=== PATIENT | female | born 1980 | race Two or more races ===

== ENCOUNTER 2016-07-29 02:44 | Inpatient (IN) | payer OTHER ==
[2016-07-29] VITALS (7 sets, daily range): BP systolic 102–118; BP diastolic 53–71; PULSE 62–86; RESP 17–20
[~2016-07-29] VITALS: Ht 162.6 cm; Wt 92.2 kg
[2016-07-29] MEDS ORDERED: LACTATED RINGER'S 1,000 ML IV SCH (03:42)
--- NOTE | 2016-07-29 03:46 | TRIAGE ---
OB Triage Datetime Report Generated by CPN: 07/29/2016 03:46 Datetime: 07/29/2016 03:30 Monitor Mode: External Quality: Mild Pattern: Normal: <= 5 Contractions in 10 Minutes Resting Tone Coolin: Relaxed Heart Rate FHR Baseline Rate: 140 Monitor Mode: External US FHR Baseline Changes: No Baseline Change Variability: Moderate 6-25 bpm Accelerations: 15X15 Decelerations: None Category: Category I Vaginal Exam Dilatation (cms): 3.5 Effacement (%): 70 Station: -1 Exam By: Osiel Coronel Amniotic Fluid Amount: None Amniotic Fluid Odor: None Vaginal Bleeding: None Cervix, Consistency: Soft Cervix, Position: Posterior Presentation 'A': Cephalic Datetime: 07/29/2016 03:21 Time of Arrival: 07/29/2016 02:40 EGA: 39.0 Arrived By: Wheelchair Arrived From: Home Chief Complaint: w/ hx c/s x1 c/o ucs ans ?leaking small amt fluid Movement: Present Contractions: Irregular Contractions: q30 Rupture of Membranes: Unsure Vaginal Bleeding: None Vaginal Discharge: Present Recent Sexual Intercouse: Denies Patient Complaints: Contractions Initial Plan: EFM, SVE Datetime: 07/29/2016 03:15 Quality: Mild Pattern: Normal: <= 5 Contractions in 10 Minutes Resting Tone Coolin: Relaxed Heart Rate FHR Baseline Rate: 135 Monitor Mode: External US Variability: Moderate 6-25 bpm Accelerations: 15X15 Datetime: 07/29/2016 03:03 Comments: 115 Datetime: 07/29/2016 03:01 Maternal Assessment Level of Consciousness: Fully Conscious Headache: Denies Blurred Vision: No Nausea/Vomiting: Denies RUQ Epigastric Pain: Denies Facial Edema: None Labor Evaluation Frequency: placed Monitor Mode: External Resting Tone Coolin: Relaxed Monitor Mode: External US Comments: FHR 90 Pain Assessment Pain Scale: 5 Pain Presence: Intermittent Pain Type: Contraction Pain Location: Abdomen
[2016-07-29] MEDS ORDERED: LEVO100T87 PO (03:48)
[2016-07-29] MEDS ORDERED: PRENAT PO (03:48)
[2016-07-29] MEDS ORDERED: CHOL100062 PO (03:48)
[2016-07-29 03:50] LABS: ADD SCAN DIFF NO
[2016-07-29] MEDS ORDERED: OXYTOCIN 30 UNITS/LR 500 ML IV PRN ×3 (04:00→12:30)
[2016-07-29] MEDS ORDERED: CARBOPROST 250 MCG INJ IM PRN ×3 (04:00→12:30)
[2016-07-29] MEDS ORDERED: CEFAZOLIN 2 GM/50 ML (PMX) 50 ML IV SCH (04:00)
[2016-07-29] MEDS ORDERED: METHYLERGONOVINE 0.2 MG INJ IM PRN ×3 (04:00→12:30)
[2016-07-29] MEDS ORDERED: MISOPROSTOL 200 MCG TAB PR PRN ×3 (04:00→12:30)
[2016-07-29] MEDS ORDERED: OXYTOCIN 30 UNITS/LR 500 ML IV SCH ×2 (04:00→07:30)
[2016-07-29 04:01] LABS: BASOPHILS % 0.3 % (0.0-2.0); EOSINOPHILS # 0.1 10^3/ul (0.0-0.5); EOSINOPHILS % 0.8 % (0.0-7.0); HEMATOCRIT 34.9 % (37.0-47.0); LYMPHOCYTES # 2.4 10^3/ul (0.8-2.9); LYMPHOCYTES % 20.7 % (15.0-51.0); MEAN CORPUSCULAR HEMOGLOBIN 30.8 pg (29.0-33.0); MEAN CORPUSCULAR HGB CONC 34.4 g/dl (32.0-37.0); MEAN CORPUSCULAR VOLUME 89.7 fl (82.0-101.0); MEAN PLATELET VOLUME 11.7 fl (7.4-10.4); MONOCYTE # 0.8 10^3/ul (0.3-0.9); MONOCYTES % 7.3 % (0.0-11.0); NEUTROPHIL # 7.9 10^3/ul (1.6-7.5); NEUTROPHILS % 69.5 % (39.0-77.0); PLATELET COUNT 265 10^3/UL (140-415); RED BLOOD COUNT 3.89 10^6/ul (4.20-5.40); RED CELL DISTRIBUTION WIDTH 14.6 % (11.5-14.5); WHITE BLOOD COUNT 11.4 10^3/ul (4.8-10.8)
[2016-07-29 04:19] LABS: INR 1.16; PARTIAL THROMBOPLASTIN TIME 29.4 Sec (25.0-35.0); PROTIME 14.9 Sec (12.2-14.2); PT RATIO 1.2
[2016-07-29] MEDS ORDERED: CLINDAMYCIN 900 MG/D5W (PMX) 50 ML IV SCH (04:30)
[2016-07-29] MEDS ORDERED: TERBUTALINE 1 ML ONE (05:14)
[2016-07-29] MEDS ORDERED: TERBUTALINE 1 MG/ML INJ SC ONE (06:00)
[2016-07-29] MEDS ORDERED: EPHEDrine SULFATE 50 MG/5 ML SYG ONE (07:00)
[2016-07-29] MEDS ORDERED: OXYTOCIN 30 UNITS/LR 500 ML BAG IV ONE (07:00)
[2016-07-29] MEDS ORDERED: CLINDAMYCIN 900 MG/D5W (PMX) 50 ML IVPB SCH (07:30)
[2016-07-29] MEDS: LACTATED RINGER'S 1,000 ML IV SCH ×2 (07:39→08:17)
[2016-07-29] MEDS ORDERED: NALOXONE (0.4 MG/ML) INJ IV PRN (08:00)
[2016-07-29] MEDS ORDERED: CITRIC ACID/NA CITRATE 30 ML CUP PO ONE (08:00)
[2016-07-29] MEDS ORDERED: METOCLOPRAMIDE 10 MG INJ IV PRN (08:00)
[2016-07-29] MEDS ORDERED: HYDROmorphONE 1 MG/ML SYG IV PRN ×2 (08:00)
[2016-07-29] MEDS ORDERED: HYDROmorphONE (0.2 MG/ML) 10ML SYG IV PRN ×3 (08:00)
[2016-07-29] MEDS ORDERED: PROCHLORPERAZINE 10 MG INJ IV PRN (08:00)
[2016-07-29] MEDS ORDERED: DIPHENHYDRAMINE 50 MG INJ IV PRN ×3 (08:00→12:30)
[2016-07-29] MEDS ORDERED: MEPERIDINE 25 MG INJ IV PRN (08:00)
[2016-07-29] MEDS ORDERED: ONDANSETRON 4 MG INJ IV PRN ×3 (08:00→12:30)
[2016-07-29] MEDS ORDERED: FENTAnyl 50 MCG/ML VIAL IV PRN (08:00)
[2016-07-29] MEDS ORDERED: PHENYLephrine (100 MCG/ML) 5ML SYG ONE ×4 (08:30→09:19)
[2016-07-29] MEDS ORDERED: morphine SULFATE/PF (10 MG/10 ML) INJ ONE (08:30)
--- NOTE | 2016-07-29 08:34 | HP ---
Date/Time of Note Date/Time of Note DATE: 07/29/16 TIME: 08:24 OB - History Hx of Present Free Text/Dictation 36y.o [id number] 39weeks with c/o uterine [id number] with previous section VE 3-4cm 70% -1 poss rom [id number] have been on levothyroxine 100mcg prepare for repeat section Estimated Due Date: Aug 05, 2016 : 3 Para: 1 Spontaneous : 0 Therapeutic : 1 Care: Good Care Ultrasounds: Normal mid trimester US Obstetrical Complications: None Medical Complications: Other (hypotyroidism) Past Family/Social History * Past Medical, Surgical, Family and Obstetric Histories reviewed from chart. Blood Type: Unknown Rubella: unknown RPR/VDRL: Unknown GBS Status: Unknown HBsAG: Unknown OB Admission Exam Vital Signs Vital Signs Vital Signs Date Time Temp Pulse Resp B/P Pulse Ox O2 Delivery O2 Flow Rate FiO2 07/29/16 03:40 98.3 72 18 113/71 Room Air Physical Exam HEENT: WNL Heart: Rhythm Normal Lungs: Clear, Equal Abdomen: WNL Extremities: Normal Reflexes: Normal Cervical Dilatation: 3cm Effacement: 75% Station: -1 Membranes: Intact Amniotic Fluid: Other Heart Rate: 130's Accelerations: Accelerations Present Decelerations: No Decelerations Varibility: Moderate Contractions on Admission: >10 Minutes Apart Intensity: Mild Last 72 hours Lab Results CBC & BMP 07/29/16 03:15 OB Assessment/Plan Reason for admission: active labor Plan: Section DAVID FINK MD Jul 29, 2016 08:34
[2016-07-29] MEDS ORDERED: LIDOCAINE 2% (SDV) 5 ML INJ ONE (08:48)
[2016-07-29] MEDS: KETOROLAC 30 MG INJ IV PRN (11:52)
[2016-07-29] MEDS ORDERED: ZOLPIDEM 5 MG TAB PO PRN (12:30)
[2016-07-29] MEDS ORDERED: OXYCODONE/ACETAMINOPHEN (5/325) TAB PO PRN (12:30)
[2016-07-29] MEDS ORDERED: LANOLIN 7 GM TUBE TOP PRN (12:30)
--- NOTE | 2016-07-29 13:31 | OPR ---
DATE OF OPERATION: 07/29/2016 PREOPERATIVE DIAGNOSIS: 39 weeks with a previous section, in labor. POSTOPERATIVE DIAGNOSIS: 39 weeks with a previous section, in labor. Delivered normal . OPERATION PERFORMED: Repeat low transverse section. SURGEON: Phoebe Reno MD FURNACE RELINER: ANESTHESIA: Spinal. ANESTHESIOLOGIST: Charly Conklin MD ESTIMATED BLOOD LOSS: Approximately 500 mL. PROCEDURE: Under appropriate induction of spinal anesthesia, the patient was placed in the frog pos ition. Bermudez catheter was introduced into the bladder under sterile condition, repositioned to supi ne. Abdominal wall was prepped and draped in usual aseptic manner. A transverse incision was made on the previous incisional scar. Incision was carried down through the subcutaneous tissue to the a nterior rectus fascia which was incised transversely length of the incision. Fascial flap was creat ed by blunt and sharp dissection of tendinous attachment, rectus muscles split and peritoneal cavity was entered. There were filmy adhesions all over the uterine serosa, but there is no significant a dhesion noted. A transverse incision was made above the uterovesical reflection. Incision carried down to the amniotic membrane, ruptured, revealed clear amniotic fluid. Normal female was debra rn, 7 pounds 7 ounces, with 8 and 9, and 3 times loose nuchal cord noted which was released an d the mouth and nose were cleaned, cord was clamped and cut, and handed to the respiratory care pers oncounts include [facility] beds at the [facility] for further care. Cord was extremely long. Cord blood was obtained. Placenta was removed ma nually. Cavity was explored with a dry lap and the uterus was exteriorized. Incision was closed us ing #1 chromic catgut in continuous manner and second layer using 0 chromic catgut in continuous man ner, thus imbricating the first layer of the closure. No bleeder was noted. The uterus was relocated in abdominal cavity and after all the sponges were removed and irrigation w as done. The uterine incisional site was rechecked for the bleeder and sponge count correct. Parie rashid peritoneum was closed using 0 chromic catgut in continuous manner, muscle closed with 0 chromic catgut in continuous manner. Fascia closed with #1 Vicryl in continuous manner in 2 segments after a piece of Surgicel was laid on it. Subcutaneous tissues were irrigated. This layer was approximat ed with 2-0 plain in continuous manner. Skin was closed with 3-0 Monocryl in a subcuticular manner. Estimated blood loss approximately 550 mL. Final sponge count correct. The patient withstood the procedure well and was sent to recovery room in stable condition. Dictated By: PHOEBE THOMPSON/OBED Conf#: [id number] DID#: [id number]
[2016-07-29] MEDS: OXYTOCIN 30 UNITS/LR 500 ML IV SCH ×3 (14:14→20:18)
[2016-07-29] MEDS: SENNA/DOCUSATE NA (8.6MG/50MG) TAB PO SCH (21:00)
[2016-07-30 00:11] VITALS: BP 97/57; PULSE 75; RESP 18
[2016-07-30] MEDS: LACTATED RINGER'S 1,000 ML IV SCH ×2 (00:26→08:30)
[2016-07-30] MEDS: KETOROLAC 30 MG INJ IV PRN (04:11)
[2016-07-30 04:13] VITALS: BP 95/55; PULSE 87; RESP 18
[2016-07-30] MEDS: LEVOTHYROXINE 100 MCG TAB PO SCH (05:54)
--- NOTE | 2016-07-30 07:16 | CONS ---
Date/Time of Note Date/Time of Note DATE: 07/30/16 TIME: 07:16 Consultation Date/Type/Reason Admit Date/Time Jul 29, 2016 at 03:43 Initial Consult Date 07/30/16 Type of Consultation: Anesthesiology Reason for Consultation Follow up 24 HR Interval Summary Free Text/Dictation Pt seen and examined at bedside is POD #1 for C/S. Pt had Duramorph neuraxial injection for post op pain management. She states she is currently doing well with no pain/N/V/D/CHRISTIAN/Numbness. Will continue to follow up PRN. Thank you. Constitutional: improved, no complaints Exam/Review of Systems Vital Signs Vitals Vital Signs Date Time Temp Pulse Resp B/P Pulse Ox O2 Delivery O2 Flow Rate FiO2 07/30/16 04:13 98.3 87 18 95/55 Room Air 07/29/16 12:30 94 Intake and Output 07/29/16 07/29/16 07/30/16 15:00 23:00 07:00 Intake Total 2425 ml 500 ml 1250 ml Output Total 1200 ml 500 ml 2800 ml Balance 1225 ml 0 ml -1550 ml Results Result Diagram: 07/29/16 0315 Medications Medications Current Medications Ketorolac Tromethamine (Toradol) 30 mg Q6H PRN IV PAIN Last administered on 07/30t 04:11; Admin Dose 30 MG; Start 07/29/16 at 08:00; Stop 07/30/16 at 07:59 Hydromorphone HCl (Dilaudid) 0.2 mg Q3H PRN IV PAIN LEVEL 1-5; Start 07/29/16 at 08:00; Stop 07/30/16 at 07:59 Hydromorphone HCl (Dilaudid) 0.4 mg Q3H PRN IV PAIN LEVEL 6-10; Start 07/29/16 at 08:00; Stop 07/30/16 at 07:59 Diphenhydramine HCl (Benadryl) 25 mg Q6H PRN IV ITCHING; Start 07/29/16 at 08:00 ; Stop 07/30/16 at 07:59 Ondansetron HCl (Zofran Inj) 4 mg Q6H PRN IV NAUSEA AND/OR VOMITING; Start 07/29 at 08:00; Stop 07/30/16 at 07:59 Prochlorperazine (Compazine Inj) 10 mg ONCE PRN IV NAUSEA AND/OR VOMITING; Start 07/29/16 at 08:00; Stop 07/30/16 at 07:59 Levothyroxine Sodium (Synthroid) 100 mcg DAILY@06 PO Last administered on t 05:54; Admin Dose 100 MCG; Start 07/30/16 at 06:00 Oxycodone/ Acetaminophen (Percocet (5/ 325)) 1 tab Q4H PRN PO PAIN LEVEL 4-6; Start 07/29/16 at 12:30 Oxycodone/ Acetaminophen (Percocet (5/ 325)) 2 tab Q4H PRN PO PAIN LEVEL 7-10; Start 07/29/16 at 12:30 Ibuprofen (Motrin) 600 mg Q6 PO ; Start 07/30/16 at 12:00 Simethicone (Mylicon) 160 mg Q8H PRN PO DISTENSION/GAS/BLOATING; Start 07/29/16 at 12:30 Senna/Docusate Sodium (Senokot-S) 1 tab BID PO ; Start 07/29/16 at 21:00 Diphtheria/ Tetanus/Acell Pertussis 0.5 ml 0.5 ml ONCE ONCE IM* ; Start 08/01/16 at 09:00; Stop 08/01/16 at 09:01 Oxytocin/Lactated Ringer's 500 ml @ 0 mls/hr ONCE PRN IV For Hemorrhage Management; Start 07/29/16 at 12:30 Methylergonovine Maleate (Methergine) 0.2 mg ONCE PRN IM VAGINAL BLEEDING; Start 07/29/16 at 12:30 Carboprost Tromethamine (Hemabate) 250 mcg ONCE PRN IM VAGINAL BLEEDING; Start 07/29/16 at 12:30 Misoprostol (Cytotec) 1,000 mcg ONCE PRN ID VAGINAL BLEEDING; Start 07/29/16 at 12:30 Diphenhydramine HCl (Benadryl) 25 mg Q6H PRN IV PRURITUS; Start 07/29/16 at 12: 30 Ondansetron HCl (Zofran Inj) 4 mg Q6H PRN IV NAUSEA AND/OR VOMITING; Start 07/29 at 12:30 Zolpidem Tartrate 10 mg 10 mg QHS PRN PO INSOMNIA; Start 07/29/16 at 12:30 Lactated Ringer's (Lr) 1,000 ml @ 125 mls/hr Q8H IV Last administered on t 00:26; Admin Dose 125 MLS/HR; Start 07/30/16 at 00:30; Stop 08/03/16 at 09: 00 KUNAL VALDEZ Jul 30, 2016 07:16
[2016-07-30 08:20] VITALS: BP 125/67; PULSE 78; RESP 19
[2016-07-30] MEDS: SENNA/DOCUSATE NA (8.6MG/50MG) TAB PO SCH ×2 (09:16→20:38)
[2016-07-30] MEDS: OXYCODONE/ACETAMINOPHEN (5/325) TAB PO PRN ×2 (09:17→15:45)
[2016-07-30 10:12] LABS: ADD SCAN DIFF NO
[2016-07-30 10:14] LABS: BASOPHILS % 0.3 % (0.0-2.0); EOSINOPHILS # 0.1 10^3/ul (0.0-0.5); EOSINOPHILS % 0.4 % (0.0-7.0); HEMATOCRIT 32.2 % (37.0-47.0); HEMOGLOBIN 10.6 g/dl (12.0-16.0); LYMPHOCYTES # 1.6 10^3/ul (0.8-2.9); LYMPHOCYTES % 13.4 % (15.0-51.0); MEAN CORPUSCULAR HEMOGLOBIN 30.5 pg (29.0-33.0); MEAN CORPUSCULAR HGB CONC 32.9 g/dl (32.0-37.0); MEAN CORPUSCULAR VOLUME 92.8 fl (82.0-101.0); MEAN PLATELET VOLUME 11.6 fl (7.4-10.4); MONOCYTE # 0.6 10^3/ul (0.3-0.9); MONOCYTES % 5.2 % (0.0-11.0); NEUTROPHIL # 9.3 10^3/ul (1.6-7.5); PLATELET COUNT 187 10^3/UL (140-415); RED BLOOD COUNT 3.47 10^6/ul (4.20-5.40); RED CELL DISTRIBUTION WIDTH 15.1 % (11.5-14.5); WHITE BLOOD COUNT 11.6 10^3/ul (4.8-10.8)
[2016-07-30] MEDS: IBUPROFEN 600 MG TAB PO SCH ×2 (11:32→17:32)
[2016-07-30 15:45] VITALS: BP 100/56; PULSE 79; RESP 18
[2016-07-30 19:30] VITALS: BP 100/58; PULSE 85; RESP 19
[2016-07-31] MEDS: IBUPROFEN 600 MG TAB PO SCH ×4 (00:24→17:37)
[2016-07-31 04:00] VITALS: BP 108/65; PULSE 80; RESP 20
[2016-07-31] MEDS: LEVOTHYROXINE 100 MCG TAB PO SCH (05:58)
[2016-07-31 07:30] VITALS: BP 99/51; PULSE 76; RESP 18
[2016-07-31] MEDS: SENNA/DOCUSATE NA (8.6MG/50MG) TAB PO SCH (10:03)
[2016-07-31] MEDS: OXYCODONE/ACETAMINOPHEN (5/325) TAB PO PRN (10:06)
[2016-07-31 16:11] VITALS: BP 100/69; PULSE 84; RESP 18
--- NOTE | 2016-07-31 19:15 | PD.PPDC ---
SPOUT WORKER Discharge Instruction Condition Patient Condition: Good Diet Diet: Resume Regular Diet Activity/Restrictions Activity: Normal Activity May Shower Wound/Drain Care Instructions Wound/Drain Care Instructions: Wash with soap and water Keep clean and dry Follow-up Follow-up with Physician: 2 Return to clinic for PERSONAL COUNSELOR Instructions: Fever greater than 101 Chills Worsening abdominal pain Excessive Vaginal Bleeding More than 2 pads per hour Unable to tolerate diet OB Instructions: Breast Tenderness Depression Blurried Vision Headache Surgical Instructions: Incisional Drainage Incisional Redness KYLEIGH HUNTER MD Jul 31, 2016 19:15
[2016-07-31] MEDS ORDERED: Oxycodone/Acetamin (5/325) PO ×2 (19:17→19:21)
[2016-07-31] MEDS ORDERED: IBUP-1542 PO (19:17)
[2016-07-31 21:07] VITALS: BP 104/58; PULSE 76; RESP 19
[2016-08-01] MEDS: SENNA/DOCUSATE NA (8.6MG/50MG) TAB PO SCH ×2 (00:14→09:31)
[2016-08-01] MEDS: IBUPROFEN 600 MG TAB PO SCH ×3 (00:14→11:57)
[2016-08-01] MEDS: OXYCODONE/ACETAMINOPHEN (5/325) TAB PO PRN (02:14)
[2016-08-01 04:45] VITALS: BP 103/63; PULSE 73; RESP 19
[2016-08-01] MEDS: LEVOTHYROXINE 100 MCG TAB PO SCH (05:49)
[2016-08-01 07:40] VITALS: BP 99/61; PULSE 75; RESP 18
[2016-08-01] MEDS ORDERED: DIPHTH/TET/ACEL PERTUSS (ADULT) 0.5 ML VIAL IM* ONE (09:00)
[2016-08-01] MEDS ORDERED: IBUP-1542 PO (10:22)
[2016-08-01] MEDS ORDERED: OXYC-279 PO (10:26)
== END 2016-08-01 16:36 | disposition home or self-care (01) | DRG 766 ==
LOC: OBT 02:44 → L-D 02:47 → OBT 03:42 → L-D 03:43 → PP1 12:28
PROC: 10D00Z1 Extraction of Products of Conception, Low, Open Approach (ICD-10-PCS; principal; 2016-07-29 09:00)
DX: O34.211 Maternal care for low transverse scar from previous cesarean delivery (principal); Z37.0 Single live birth; Z3A.39 39 weeks gestation of pregnancy
CPT/HCPCS: 84443; 85025; 85610; 85730; 86592; 86850; 86870; 86885; 86900; 86901; 87340; 90715; 94760; 99464; J1885; J2274; J2370; J2405; J2590; J2790; J3010; J3105; J7120

== ENCOUNTER 2016-09-01 16:49 | Emergency (ER) | payer OTHER ==
[~2016-09-01] VITALS: Wt 83.0 kg
[~2016-09-01 16:49] MED LIST: CHOL100062 PO; IBUP-1542 PO; LEVO100T87 PO; OXYC-279 PO; Oxycodone/Acetamin (5/325) PO; PRENAT PO
[2016-09-01] MEDS ORDERED: KETOROLAC 30 MG INJ IV STA (17:26)
[2016-09-01] MEDS ORDERED: SOD CHLORIDE 0.9% 1,000 ML IV STA (17:26)
[2016-09-01 18:02] LABS: ADD SCAN DIFF NO
[2016-09-01 18:06] LABS: BASOPHILS % 0.2 % (0.0-2.0); EOSINOPHILS # 0.2 10^3/ul (0.0-0.5); EOSINOPHILS % 1.9 % (0.0-7.0); HEMOGLOBIN 12.4 g/dl (12.0-16.0); LYMPHOCYTES # 2.8 10^3/ul (0.8-2.9); LYMPHOCYTES % 27.7 % (15.0-51.0); MEAN CORPUSCULAR HEMOGLOBIN 28.3 pg (29.0-33.0); MEAN CORPUSCULAR HGB CONC 31.8 g/dl (32.0-37.0); MEAN PLATELET VOLUME 11.2 fl (7.4-10.4); MONOCYTE # 0.8 10^3/ul (0.3-0.9); MONOCYTES % 7.8 % (0.0-11.0); NEUTROPHIL # 6.2 10^3/ul (1.6-7.5); PLATELET COUNT 294 10^3/UL (140-415); RED BLOOD COUNT 4.38 10^6/ul (4.20-5.40); RED CELL DISTRIBUTION WIDTH 13.5 % (11.5-14.5); WHITE BLOOD COUNT 10.1 10^3/ul (4.8-10.8)
[2016-09-01 18:15] LABS: ADD UMIC YES; URINE BILIRUBIN (Dip) NEGATIVE (NEGATIVE); URINE BLOOD (Dip) TRACE (NEGATIVE); URINE COLOR LT. YELLOW (YELLOW); URINE GLUCOSE (Dip) NEGATIVE (NEGATIVE); URINE KETONES (Dip) NEGATIVE (NEGATIVE); URINE LEUKOCYTE ESTERASE (Dip) 2+ (NEGATIVE); URINE NITRITE (Dip) NEGATIVE (NEGATIVE); URINE TOTAL PROTEIN (Dip) NEGATIVE (NEGATIVE); URINE UROBILINOGEN (Dip) 0.2 E.U./dL (0.1-1.0)
[2016-09-01 18:25] LABS: BACTERIA,URINE FEW; SQUAMOUS EPITHELIAL CELL,UR MODERATE; URINE RBCS 0-2 /HPF (0)
[2016-09-01 18:26] LABS: POTASSIUM 4.4 mmol/L (3.5-5.1)
[2016-09-01 18:28] LABS: CREATININE 0.64 mg/dl (0.44-1.00)
[2016-09-01 18:29] LABS: ALBUMIN/GLOBULIN RATIO 1.02; BILIRUBIN,INDIRECT 0.5 mg/dl (0-1.1); BILIRUBIN,TOTAL 0.5 mg/dl (0.2-1.3); CALCIUM 9.2 mg/dl (8.4-10.2); TOTAL PROTEIN 7.9 g/dl (6.1-8.1)
[2016-09-01] MEDS ORDERED: NITROFURANTOIN (SR) 100 MG CAP PO STA (18:47)
[2016-09-01] MEDS ORDERED: NITR-58 PO (19:13)
[2016-09-01] MEDS ORDERED: PHEN-537 PO (19:13)
--- NOTE | 2016-09-01 20:17 | ERD ---
ER Documentation Chief Complaint Date/Time DATE: 09/01/16 TIME: 20:12 Chief Complaint AP AND FEVER, S/P C SECTION MNTH AGO. NO NO VAG BLEED. HPI This is a 36-year-old female status post on July 29, 2016 presenting to the emergency department complaining of tactile fever on/off and pelvic pain since yesterday. Patient states the pain is 6 out of 10 comes and goes. She denies any fevers, urinary symptoms, nausea, vomiting. Patient states that she had a bowel movement last night and was normal. Her last meal was 2 hours prior to being seen. ROS All systems reviewed and are negative except as per history of present illness. Medications Home Meds Active Scripts Phenazopyridine Hcl* (Pyridium*) 100 Mg Tab, 100 MG PO TID Y for URINARY PAIN, # 10 TAB Prov:NITHIN BANGURA PA-C 09/01/16 Nitrofurantoin Monohyd Macrocr* (Macrobid*) 100 Mg Capsr, 100 MG PO BID for 7 Days, CAP Prov:NITHIN BANGURA PA-C 09/01/16 [Oxycodone/Acetamin (5/325)] 1 TAB TAB No Conflict Check, 1 TAB PO Q4H Y for PAIN LEVEL 4-6 for 10 Days Prov:KYLEIGH HUNTER MD 07/31/16 Reported Medications Oxycodone HCl/Acetaminophen (Percocet 5-325 mg Tablet) 1 Each Tablet, 2 EACH PO , TAB 08/01/16 Ibuprofen* (Ibuprofen*) 600 Mg Tablet, 600 MG PO Q6, TAB 08/01/16 Levothyroxine Sodium* (Levothyroxine Sodium*) 100 Mcg Tablet, 100 MCG PO BEFORE BREAKFAST, #30 TAB 07/29/16 Cholecalciferol* (Vitamin D3*) 1,000 Unit Tablet, 1000 UNIT PO DAILY, TAB 07/29/16 Multivit/Min/Fol Ac/Iron/Pren* ( S*) 1 Tab Tab, 1 TAB PO DAILY, TAB 07/29/16 Allergies Allergies: Coded Allergies: Penicillins (Verified Allergy, Intermediate, RASH, 09/01/16) PMhx/Soc Medical and Surgical Hx: pt denies Medical Hx, pt denies Surgical Hx Hx Alcohol Use: No Hx Substance Use: No Hx Tobacco Use: No Smoking Status: Never smoker Physical Exam Vitals Vital Signs Date Time Temp Pulse Resp B/P Pulse Ox O2 Delivery O2 Flow Rate FiO2 09/01/16 16:56 98.9 88 20 90/53 98 Physical Exam GENERAL: well-developed/well-nourished, in no apparent distress, non-toxic appearing HENT: NC/AT, moist mucous membranes EYES: Conjunctiva normal NECK: Supple, no lymphadenopathy PULM: CTA bilaterally, no rales, rhonchi, or wheezing heard CV: Normal S1S2, RRR, good capillary refill GI: Soft, non-distended, tender to palpation in pelvic region Normal bowel sounds, no masses or organomegaly felt on exam No gross peritonitis, no bruits Negative Rovsing, negative Castro, negative McBurney's point, Negative CVAT BACK: No masses EXT: No clubbing, cyanosis, or edema NEURO: Alert and Orientated SKIN: No erythema, induration or warmth at the incisional site of the PSYCH: Normal mood and mentation Result Diagram: 09/01/161 09/01/161750 Results 24 hrs Laboratory Tests Test 09/01/16 17:51 White Blood Count 10.110^3/ul Red Blood Count 4.3810^6/ul Hemoglobin 12.4g/dl Hematocrit 39.0% Mean Corpuscular Volume 89.0fl Mean Corpuscular Hemoglobin 28.3pg Mean Corpuscular Hemoglobin Concent 31.8g/dl Red Cell Distribution Width 13.5% Platelet Count 14146^3/UL Mean Platelet Volume 11.2fl Neutrophils % 62.0% Lymphocytes % 27.7% Monocytes % 7.8% Eosinophils % 1.9% Basophils % 0.2% Nucleated Red Blood Cells % 0.0/100WBC Neutrophils # 6.210^3/ul Lymphocytes # 2.810^3/ul Monocytes # 0.810^3/ul Eosinophils # 0.210^3/ul Basophils # 0.010^3/ul Nucleated Red Blood Cells # 0.010^3/ul Urine Color LT. YELLOW Urine Clarity CLEAR Urine pH 6.0 Urine Specific [place] 1.015 Urine Ketones NEGATIVE Urine Nitrite NEGATIVE Urine Bilirubin NEGATIVE Urine Urobilinogen 0.2 E.U./dL Urine Leukocyte Esterase 2+ Urine Microscopic RBC 0-2/HPF Urine Microscopic WBC 25-50/HPF Urine Squamous Epithelial Cells MODERATE Urine Bacteria FEW Urine Hemoglobin TRACE Urine Glucose NEGATIVE% Urine Total Protein NEGATIVE Sodium Level 142mmol/L Potassium Level 4.4mmol/L Chloride Level 100mmol/L Carbon Dioxide Level 29mmol/L Anion Gap 17 Blood Urea Nitrogen 13mg/dl Creatinine 0.64mg/dl Glucose Level 91mg/dl Calcium Level 9.2mg/dl Total Bilirubin 0.5mg/dl Direct Bilirubin 0.00mg/dl Indirect Bilirubin 0.5mg/dl Aspartate Amino Transf (AST/SGOT) 29IU/L Alanine Aminotransferase (ALT/SGPT) 40IU/L Alkaline Phosphatase 94IU/L Total Protein 7.9g/dl Albumin 4.0g/dl Globulin 3.90g/dl Albumin/Globulin Ratio 1.02 Lipase 64U/L Beta HCG, Quantitative < 2.4mIU/ml Current Medications Medications (Trade) Dose Ordered Sig/Kirstin Route PRN Reason Start Time Stop Time Status Last Admin Dose Admin Sodium Chloride (NS) 1,000 ml @ 1,000 mls/hr Q1H STAT IV 09/01/16 17:26 09/01/16 18:25 DC 09/01/16 17:52 Ketorolac Tromethamine (Toradol) 30 mg ONCE STAT IV 09/01/16 17:26 09/01/16 17:28 DC 09/01/16 17:51 Nitrofurantoin Macrocrystals (Macrobid) 100 mg ONCE STAT PO 09/01/16 18:47 09/01/16 18:48 DC 09/01/16 18:53 Procedures/MDM This is a 36-year-old female presenting to the emergency room complaining of pelvic pain and fever since yesterday which is likely due to a urinary tract infection. On examination patient is afebrile, she has stable vital signs and she appears well and nontoxic. There is no evidence of nephrolithiasis, pyelonephritis, appendicitis. Patient incisional site was unremarkable for cellulitis. Urinalysis was done and showed evidence of a urinary tract infection, patient was given Macrobid in the ED. IV access was established, patient was given 1 L fluids, and Lab work was drawn. CBC did not show any evidence of leukocytosis or anemia. CMP did not show any evidence of renal, liver, or electrolyte abnormalities. Lipase was normal. Pelvic ultrasound was done in the ED and showed hypoechoic area in the anterior uterine corpus which is consistent with history of recent , unremarkable ovaries and adnexa. Patient stable for discharge for home with a prescription for Macrobid and Pyridium. I discussed with patient to return to the ER for any worsening signs or symptoms. She understands and agrees with this plan Departure Diagnosis: Primary Impression: UTI (urinary tract infection) Condition: Stable Patient Instructions: Understanding Urinary Tract Infections (UTIs) Additional Instructions: FOLLOW UP WITH YOUR PRIMARY CARE PHYSICIAN TOMORROW.Return to this facility if you are not improving as expected. Take all medicines as directed. Return to this facility if you are not improving as expected. NITHIN BANGURA PA-C September 01, 2016 20:17
[2016-09-01 20:24] VITALS: BP 100/67; PULSE 88; RESP 17
== END 2016-09-01 20:24 | disposition home or self-care (01) ==
LOC: FTE 16:49
DX: N39.0 Urinary tract infection, site not specified (principal)
CPT/HCPCS: 76830; 76856; 80053; 81001; 83690; 84702; 85025; J1885; J7030; Z7610; 81003

== ENCOUNTER 2017-03-05 10:24 | Day surgery (SDC) | payer OTHER ==
[2017-03-04 10:53] VITALS: BMI 31.9
[~2017-03-05] VITALS: Ht 165.1 cm; Wt 86.6 kg
[~2017-03-05 10:24] MED LIST changes: +CLINDAMYCIN 600 MG/D5W (PMX) 50 ML IVPB SCH; +NITR-58 PO; +PHEN-537 PO
[2017-03-05] MEDS ORDERED: SOD CHLORIDE 0.9% 1,000 ML IV ONE (11:00)
[2017-03-05 11:06] VITALS: BP 102/62; PULSE 18; RESP 18; Ht 165.1 cm; Wt 86.6 kg
--- NOTE | 2017-03-05 11:41 | PN ---
Date/Time of Note Date/Time of Note DATE: 03/05/17 TIME: 11:39 Assessment/Plan VTE Prophylaxis VTE Prophylaxis Intervention: SCD's Lines/Catheters IV Catheter Type (from Nrsg): Peripheral IV Subjective 24 Hr Interval Summary Free Text/Dictation 35 yo F who was to undergo scalp mass excisions x 2. However patient is unwilling to have her scalp masses shaved prior to surgery to decrease rates of wound infection. Risk, alternatives, benefits were discussed with the patient. Patient unwilling to undergo surgery as patient doesn't want to have her surgical site shaved and she is unwilling to accept scar alopecia as a potential outcome. Exam/Review of Systems Vital Signs Vitals Vital Signs Date Time Temp Pulse Resp B/P Pulse Ox O2 Delivery O2 Flow Rate FiO2 03/05/17 11:06 96.8 18 18 102/62 96 Room Air Medications Medications Current Medications Clindamycin HCl/ Dextrose 50 ml @ 50 mls/hr ONCE IVPB ; Start 03/05/17 at 00:00 ; Stop 03/05/17 at 23:59; Status No refill Sodium Chloride (NS) 1,000 ml @ 75 mls/hr [id number] ONCE IV ; Start 03/05/17 at 11:00; Stop 03/06/17 at 00:19 Francie HECK Mar 05, 2017 11:41
[2017-03-05] MEDS ORDERED: hydrALAzine 20 MG INJ IV PRN (12:00)
[2017-03-05] MEDS ORDERED: ONDANSETRON 4 MG INJ IV PRN (12:00)
[2017-03-05] MEDS ORDERED: EPHEDrine SULFATE 50 MG/5 ML SYG IV PRN (12:00)
[2017-03-05] MEDS ORDERED: OXYCODONE/ACETAMINOPHEN (5/325) TAB PO PRN ×2 (12:00)
[2017-03-05] MEDS ORDERED: METOCLOPRAMIDE 10 MG INJ IV PRN (12:00)
[2017-03-05] MEDS ORDERED: FENTAnyl 50 MCG/ML VIAL IV PRN ×3 (12:00)
[2017-03-05] MEDS ORDERED: LABETALOL HCL 20MG INJ IV PRN (12:00)
[2017-03-05] MEDS ORDERED: KETOROLAC 30 MG INJ IV PRN (12:00)
[2017-03-05] MEDS ORDERED: MEPERIDINE 25 MG INJ IV PRN (12:00)
[2017-03-05] MEDS ORDERED: MIDAZOLAM 1 MG/ML 2 ML INJ IV PRN (12:00)
[2017-03-05] MEDS ORDERED: HYDROmorphONE (0.2 MG/ML) 10ML SYG IV PRN ×3 (12:00)
== END 2017-03-05 12:17 | disposition home or self-care (01) ==
LOC: SDS 10:24
PROVIDERS: ATTEND Surgery
DX: R22.0 Localized swelling, mass and lump, head (principal); Z53.8 Procedure and treatment not carried out for other reasons; Z88.0 Allergy status to penicillin

== ENCOUNTER 2018-10-13 09:46 | Day surgery (SDC) | payer MEDICAID ==
[~2018-10-13] VITALS: Ht 157.5 cm; Wt 81.3 kg
[2018-10-13] VITALS (15 sets, daily range): BP systolic 92–111; BP diastolic 49–62; PULSE 58–84; RESP 11–18; Ht 157.5 cm; Wt 81.3 kg
[~2018-10-13 09:46] MED LIST changes: -CLINDAMYCIN 600 MG/D5W (PMX) 50 ML IVPB SCH; +LEVO100T8 PO; -LEVO100T87 PO; -NITR-58 PO; -OXYC-279 PO; -Oxycodone/Acetamin (5/325) PO; -PHEN-537 PO; +SOD CHLORIDE 0.9% 1,000 ML IV SCH
--- NOTE | 2018-10-13 11:43 | PREAC ---
Date/Time of Note Date/Time of Note DATE: 10/13/18 TIME: 11:43 Anesthesia Eval and Record Evaluation Time Pre-Procedure Interview DATE: 10/13/18 TIME: 11:43 Age 38 Sex female NPO: 8 hrs Preoperative diagnosis scalp mass x 2 Planned procedure excision scalp mass times 2 Past Medical History Past Medical History: None Surgery & Anesthesia Issues No known issue Meds Anticoagulation: No Beta Jerry within 24 hr: No Reason Beta Jerry not given: Pt. not on B-Jerry Discontinued Reported Medications Ibuprofen* (Ibuprofen*) 600 Mg Tablet, 600 MG PO Q6, TAB 08/01/16 Levothyroxine Sodium* (Levothyroxine Sodium*) 100 Mcg Tablet, 100 MCG PO BEFORE BREAKFAST, #30 TAB 07/29/16 Cholecalciferol* (Vitamin D3*) 1,000 Unit Tablet, 1000 UNIT PO DAILY, TAB 07/29/16 Multivit/Min/Fol Ac/Iron/Pren* ( S*) 1 Tab Tab, 1 TAB PO DAILY, TAB 07/29/16 Current Medications Sodium Chloride 1,000 ml @ 75 mls/hr [id number] IV Last administered on 10/13/18at 10:35; Admin Dose 75 MLS/HR; Start 10/13/18 at 07:00; Stop 10/13/18 at 20:19 Meds reviewed: Yes Allergies Coded Allergies: Penicillins (Verified Allergy, Intermediate, RASH, 10/13/18) Allergies Reviewed: Yes Labs/Studies Labs Reviewed: Other (n/a) test: N/A Pre-procedure Exam Last vitals Vital Signs Date Temp Pulse Resp B/P (MAP) Pulse Ox O2 O2 Flow FiO2 Time Delivery Rate 10/13/18 97.1 73 16 111/62 100 Room Air 10:53 (78) Airway: Adequate mouth opening, Adequate thyromental dist Mallampati: Mallampati II Teeth: Normal Lung: Normal Heart: Normal ASA Physical Status ASA physical status: 2 Emergency: None Planned Anesthetic General/MAC: LMA Planned Pain Management Parenteral pain med, Local by surgeon Pre-operative Attestations Prior to commencing anesthesia and surgery, the patient was re-evaluated, there was verification of: *The patient's identity *The results of appropriate recent lab work and preoperative vital signs *The above evaluation not changing prior to induction *Anesthetic plan, risk benefits, alternative and complications discussed with patient/family; questions answered; patient/family understands, accepts and wishes to proceed. CHARLEY BOYKIN Oct 13, 2018 11:43
[2018-10-13] MEDS ORDERED: BUPIVACAINE 0.25% (MPF) 30 ML INJ ONE (12:18)
[2018-10-13] MEDS ORDERED: BUPIVACAINE 0.5% (SDV) 30 ML INJ ONE (12:29)
[2018-10-13] MEDS ORDERED: LIDOCAINE 2% (MDV) 20 ML INJ ONE (12:29)
[2018-10-13] MEDS ORDERED: NEOSTIGMINE 3 MG/3 ML SYRINGE ONE (12:30)
[2018-10-13] MEDS ORDERED: SUCCINYLCHOLINE CHLORIDE 100 MG/5 ML SYG IV ONE (12:30)
[2018-10-13] MEDS ORDERED: ROCURONIUM 50 MG INJ ONE (12:30)
[2018-10-13] MEDS ORDERED: GLYCOPYRROLATE 0.4 MG INJ ONE (12:30)
[2018-10-13] MEDS ORDERED: CEFAZOLIN 1 GM INJ ONE (12:30)
[2018-10-13] MEDS ORDERED: PROPOFOL 20 ML ONE (12:30)
[2018-10-13] MEDS ORDERED: FENTAnyl 50 MCG/ML VIAL ONE (12:31)
[2018-10-13] MEDS ORDERED: DEXAMETHASONE 4 MG/ML 5 ML INJ ONE (12:31)
[2018-10-13] MEDS ORDERED: MIDAZOLAM 1 MG/ML 2 ML INJ ONE (12:31)
[2018-10-13] MEDS ORDERED: ONDANSETRON 4 MG INJ ONE (12:31)
[2018-10-13] MEDS ORDERED: KETOROLAC 30 MG INJ ONE (13:06)
[2018-10-13] MEDS ORDERED: BACITRACIN/POLYMYXIN 28.35 GM OINT TOP ONE (13:14)
--- NOTE | 2018-10-13 13:38 | OPR ---
Date/Time of Note Date/Time of Note DATE: 10/13/18 TIME: 13:35 Operative Report Procedure Date: Oct 13, 2018 Preoperative Diagnosis scalp mass x 2 Postoperative Diagnosis same Operation/Procedure Performed 1. excision of midline scalp mass 3 cm mass 3 cm incision 2. localized adjacent tissue transfer with the use of skin flaps 6 sq cm defect of scalp 3. excision of left scalp mass 3 cm mass 3 cm incision 4. localized adjacent tissue transfer with the use of skin flaps 6 sq cm defect of left scalp 5. 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 She required surgical excision of the masses. Risks alternatives benefits and personal were discussed the patient. Potential complications including but not limited to bleeding infection wound dehiscence and in particular scar alopecia was discussed. Patient expressed understanding and consents to the operation. Procedure Description Patient is taken to the OR and prepped and draped in usual sterile fashion. Surgical time was performed. IV antibiotics given. Elliptical incision made with a 15 blade over the midline scalp mass. Dissection with cautery was carried onto the mass and the mass was circumferentially excised. Due to tissue defect localization just transfer with these of skin flaps was performed. Multilayer closed with interrupted 3-0 Vicryl running 4 Monocryl. Attention was then paid to the left scalp mass. Elliptical incision made with a 15 blade over the scalp mass. Dissection with cautery skin onto the mass and the mass was circumferentially excised. Good hemostasis status. Due to tissue defect localized adjacent to his transfer with use of skin flaps were performed. Multilayer closed with interrupted 0 Vicryl running 4-0 Monocryl. Therapeutic contains local anesthesia injected at the incision site. Bacitracin ointment and dry dressings were applied. Francie HECK Oct 13, 2018 13:37
--- NOTE | 2018-10-13 13:45 | PAC ---
Date/Time of Note Date/Time of Note DATE: 10/13/18 TIME: 13:45 Post-Anesthesia Notes Post-Anesthesia Note Last documented vital signs Vital Signs Date Temp Pulse Resp B/P (MAP) Pulse Ox O2 O2 Flow FiO2 Time Delivery Rate 10/13/18 97.1 73 16 111/62 100 Room Air 10:53 (78) Activity: WNL Respiratory function: WNL Cardiovascular function: WNL Mental status: Baseline Pain reasonably controlled: Yes Hydration appropriate: Yes Nausea/Vomiting absent: Yes Peña Ovalles M.D. Oct 13, 2018 13:45
[2018-10-13] MEDS ORDERED: HYDROCODONE/APAP (5/325) TAB PO ONE (14:00)
== END 2018-10-13 15:42 | disposition home or self-care (01) ==
LOC: SDS 09:46
PROVIDERS: ATTEND Surgery
DX: L72.11 Pilar cyst (principal)
CPT/HCPCS: 14021; 84703; 88307; J0690; J1100; J2250; J2405; J3010; Z7512; Z7610; J1885; J2710